=== PATIENT | female | born 1995 | race Caucasian/White ===

== ENCOUNTER → 2021-04-07 | Outpatient (CLI) | payer BC | LOC: KOH-I 08:30 | DX: R10.9 Unspecified abdominal pain (principal) | CPT/HCPCS: 74176 ==

== ENCOUNTER → 2021-05-05 | Outpatient (CLI) | payer BC | LOC: NM 07:56 | DX: R10.9 Unspecified abdominal pain (principal) | CPT/HCPCS: 78264; A9541 ==